=== PATIENT | male | born 1950 | race Two or more races ===

== ENCOUNTER → 2025-03-10 | Outpatient (CLI) | payer MEDICARE, MEDICAID, SELFPAY ==
--- NOTE | 2025-03-10 10:31 | XR_ITS ---
Examination: Right knee 2 views TECHNIQUE: AP lateral right knee 2 views Date and time: March 10, 2025 1053 hours INDICATIONS: Right knee pain one year. FINDINGS: Advanced narrowing lateral and patellofemoral joints Prominent osteopenia No fracture Small to moderate knee effusion IMPRESSION: Advanced narrowing lateral and patellofemoral joints
== END | disposition home or self-care (01) ==
LOC: SDIM 10:24
PROVIDERS: PCP Family Medicine; Referring Provider Orthopaedic Surgery; Visit Provider Orthopaedic Surgery
DX: M25.861 Other specified joint disorders, right knee (principal)
CPT/HCPCS: 73562

== ENCOUNTER 2025-03-28 14:15 | Observation (INO) | payer MEDICARE, MEDICAID, SELFPAY ==
[2025-03-27 13:37] VITALS: BMI 43.9
[2025-03-27 14:53] LABS: Basophils # (Auto) 0.0 Thou/mm3 (0.0-0.2); Basophils % (Auto) 0 % (0-2.5); Eosinophils # (Auto) 0.1 Thou/mm3 (0.0-0.5); Eosinophils % (Auto) 2 % (0-10); Hematocrit 42.2 % (41.0-53.0); Hemoglobin 13.7 g/dL (13.5-16.0); Immature Granulocytes Auto 0.12 Thou/mm3 (0.00-0.00); Lymphocytes # (Auto) 1.4 Thou/mm3 (1.0-4.8); Lymphocytes % (Auto) 26 % (10-50); Mean Corpuscular HGB Conc 32.5 g/dl (31.0-37.0); Mean Corpuscular Hemoglobin 30.4 pg (25.0-35.0); Mean Corpuscular Volume 94 fL (80-100); Monocytes # (Auto) 1.1 Thou/mm3 (0.0-0.8); Monocytes % (Auto) 20 % (0-12); Neutrophils # (Auto) 2.6 Thou/mm3 (1.8-7.7); Neutrophils % (Auto) 49 % (37-80); Nucleated Red Blood Cell # 0.00 Thou/mm3 (0.00-0.00); Nucleated Red Blood Cell % 0 /100 WBC (0); Platelet Count 119 Thou/mm3 (140-440); RDW Standard Deviation 44.2 fL (35.1-43.9); Red Blood Count 4.51 Miln/mm3 (4.50-5.90); White Blood Count 5.3 Thou/mm3 (3.8-10.6)
[2025-03-27 15:07] LABS: INR 1.3 (0.9-1.3); Partial Thromboplastin Time 25.6 Seconds (22.0-36.0); Prothrombin Time 13.5 Seconds (9.0-12.2)
[2025-03-27 15:10] LABS: Alanine Aminotransferase 12 U/L (10-49); Albumin, Serum 4.6 gm/dL (3.4-4.8); Albumin/Globulin Ratio 1.5 (1.2-2.2); Alkaline Phosphatase 64 U/L (46-116); Anion Gap 8 (7-16); Aspartate Amino Transferase 23 U/L (0-34); BUN/Creatinine Ratio 12 Ratio (12-20); Bilirubin,Total 1.2 mg/dL (0.3-1.2); Blood Urea Nitrogen 13 mg/dL (9-23); Calcium 10.0 mg/dL (8.3-10.6); Calcium (Corrected) 10.0 mg/dL (8.5-10.1); Carbon Dioxide 25.9 mMol/L (20.0-31.0); Chloride 105 mMol/L (98-107); Creatinine (Component) 1.1 mg/dL (0.6-1.3); Estimated Creatinine Clearance 87.8 mL/min (>60); Globulin 3.0 gm/dL (2.3-3.5); Glucose 93 mg/dL (74-106); Osmolality,Calculated 277 (275-295); Potassium 4.5 mMol/L (3.4-5.1); Sodium 139 mMol/L (136-145); Total Protein 7.6 gm/dL (5.7-8.2); eGFR > 60 See Note
[2025-03-28] VITALS (18 sets, daily range): BP systolic 90–146; BP diastolic 58–85; PULSE 62–96; RESP 15–96; TEMP 36.1–36.9; O2SAT 93–100; BMI 32.1
[2025-03-28] MEDS: RINGERS LACTATED 1000 ML 1,000 ML 20 ML IV (07:30)
--- NOTE | 2025-03-28 11:02 | XR_ITS ---
Examination: Knee, right , 3 views Technique: Knee AP, lateral, oblique 3 views Date and time of exam: March 28, 2025 1148 hours INDICATIONS: Postop knee replacement. FINDINGS: Total right knee arthroplasty. Satisfactory alignment. Prominent osteopenia. No fracture. IMPRESSION: Total right knee arthroplasty with satisfactory alignment
--- NOTE | 2025-03-28 11:03 | ESOP_ITS ---
Date of Procedure 03/28/25 Pre Op Diagnosis Severe DJD right knee joint Post Op Diagnosis Same Procedure Right total knee replacement Kelley persona implant. Femur size 10 standard Tibial baseplate size G Polyethylene size 10 CR Polyethylene size 29 mm Findings Patient is significant DJD of the right knee joint. There was [id number] appearance as well. Most of the areas of the condyles were denuded of cartilage. Patient has genu valgus deformity as well. Osteophytes were present Procedure Description The patient was given a [spinal] anesthesia. Once satisfactory anesthesia was achieved a tourniquet was placed on right upper thigh. The right knee block was given 2. Intravenous antibiotics was given at the time of anesthesia. The patient was thoroughly prepped and draped. After using Esmarch the tourniquet pressure was raised to 350 mmHg. A skin incision was made 2 inches proximal to the upper pole of patella going as far down as up to the medial aspect of the tibial tuberosity. The skin was raised as a flap on the site. The bleeding vessels were electrocoagulated as and when encountered. The quadriceps tendon, medial border of the patella and the patellar tendon along the medial aspect of the tibial tuberosity was incised and reflected. The patellar tendon was reflected as much as needed to mitch the patella. The soft tissue from the upper medial border of the tibia was reflected to correct her genu varum deformity. The knee joint was flexed. The anterior cruciate ligament, medial and lateral m eniscus were excised. Next para drill hole was made to the inferior surface of the femur. Following that a swab was placed. A 6?? of abduction was already put into it. Following that a cutting block for the inferior cut of the femur was placed and nicely secured with the pins. The swat was removed. The inferior cut of the femur was made and after that the cutting block was removed. Following that a sizer was placed. A decision was made to use size [10] femur implant. 2 drill holes each in 3?? of external rotation were made. The sizer was removed. Size [4] cutting block was placed. Following that anterior, posterior, anterior chamfer and posterior chamfer cuts were made. The cutting block was removed. The knee joint was extended and a 10 mm trial plastic was removed and the i ntended level of the tibial cut was marked. The knee joint was flexed. With the help of double-pronged the tibia was displaced anteriorly. An extramedullary jig for the cutting block placement of the tibia was placed. The mechanical axis of the zig was parallel to the mechanical axis of the tibia. Following that the tibial cutting block was placed at the desired level and was secured nicely with the help of pins. Following that the tibial cut was made. In this case was posterior cruciate ligament was saved. The cutting block was removed. The spacer was placed and a decision was made to use size [10] polyethylene. The sizing of the tibial baseplate was done and the decision was made to use size [G] tibial baseplate. Following that size [10] trial femur implant was placed in lateralized position and size [G] tibial tibial baseplate along with size [10] CR plastic was placed in knee joint was flexed and extended quite a few times and tibial baseplate was allowed to sit wherever it wanted to. The markings were made for the tibial baseplate. 2 drill holes were made for the inferior surface of the femur trial implant. The trial implant was removed and tibial baseplate was placed again with the help of pins. The collar was placed and superior hole was drilled. Following that a fin cut was made. The patella was reamed with [29] mm diameter reamer. [12] mm thickness was left. A collar was placed and 3 drill holes were made. All the trial implant was placed and patellar tracking was checked and found to be good. Lateral release was done at this point. The wound was irrigated with antibiotic solution every 4-5 minutes. Now the power lavage antibiotic solution was used. The knee joint was flexed. The bone were made dry. The cement was mixed. With the help of cement the tibial baseplate was mounted. The excess cement was removed. The femur implant was placed and trial plastic was placed and knee joint was extended. Patella was also mounted with the help of cementing. Excess cement was removed. Osteophytes from the patella was removed at this time. Once the cement was set the tourniquet pressure was released. The bleeding vessels were electrocoagulated. The trial plastic was removed and 10 mm ultra high molecular weight polyethylene was placed. Closure The quadriceps tendon, medial border of the patella and patellar tendon was closed with the help of 1 strata fix in continuous fashion. The fat layer was closed with 2 strata fix in continuous fashion. The skin was closed with Monocryl subcuticular stitch. To cleaning the wound with hydrogen peroxide solution Prineo tape was applied. A sterile dressing was applied. The wound was cleaned with hydrogen proximal solution and a sterile dressing was applied. Patient tolerated procedure very well. Estimated blood loss [50] mL. Prognosis in this case is good. This was taken to the recovery room in good condition. Anesthesia spinal and other Pathology / specimen None Estimated Blood Loss 50 Surgeon Froy Mosley MD Surgical Staff Operation Date: 03/28/25 08:30 Case Staff Anesthesiologist: Efren Dubois RNmanager terminal: Keisha Feldman
--- NOTE | 2025-03-28 11:14 | SUR.PHASEI ---
1102 patient is awake, alert, breathing unlabored, s/p Right TKA by Dr. Mosley, dressing to right knee dry with no bleeding, right pedal pulse strong, toes with good circulation, Report received from Katja WHEELER,and Dr. Dubois.
--- NOTE | 2025-03-28 11:39 | SUR.PHASEII ---
1139: Pt. AAOx4, vitals stable, breathing unlabored, no complaint of pain or nausea, dressing to right knee CDI, no active bleed noted, bilateral dorsalis pedis pulses strong and regular, cap refill to bilateral feet less than 3 seconds, report received from Mia WHEELER.
--- NOTE | 2025-03-28 11:40 | SUR.PHASEI ---
1139 patient is awake, alert, breathing unlabored, dressing to right knee dry with no bleeding, report given to Anayeli WHEELER, waiting for post op xray and room assignment
--- NOTE | 2025-03-28 14:00 | SUR.PHASEII ---
1400: Pt. AAOx4, vitals stable, breathing unlabored, no complaint of pain or nausea, dressing to right knee CDI, no active bleed noted, bilateral dorsalis pedis pulses strong and regular, cap refill to bilateral feet less than 3 seconds, pt. able to move bilateral legs, pt. tolerated lunch tray well, gave report to floor RN prior to transfer to room. Pt. transferred with all personal belongings, family made aware of transfer to room.
[2025-03-28] MEDS: ceFAZolin/D5W 1 GM IVPB 1 GM/50 ML BAG IV ×2 (15:45→23:05)
--- NOTE | 2025-03-28 16:59 | PC.NURSE ---
coordinated care with dr Sri. Peg sage
[2025-03-28] MEDS: MORPHINE SULF INJ 10 MG/ML VIAL 4 MG IVP (19:20)
[2025-03-29] VITALS (8 sets, daily range): BP systolic 127–152; BP diastolic 78–94; PULSE 75–93; RESP 18–94; TEMP 36.2–36.9; O2SAT 92–96; BMI 11.0
[2025-03-29] MEDS: MORPHINE SULF INJ 10 MG/ML VIAL 4 MG IVP ×4 (00:04→19:24)
[2025-03-29 05:46] LABS: Basophils # (Auto) 0.0 Thou/mm3 (0.0-0.2); Basophils % (Auto) 0 % (0-2.5); Eosinophils # (Auto) 0.0 Thou/mm3 (0.0-0.5); Eosinophils % (Auto) 0 % (0-10); Hematocrit 38.9 % (41.0-53.0); Hemoglobin 13.0 g/dL (13.5-16.0); Immature Granulocytes Auto 0.96 Thou/mm3 (0.00-0.00); Lymphocytes # (Auto) 1.2 Thou/mm3 (1.0-4.8); Lymphocytes % (Auto) 5 % (10-50); Mean Corpuscular HGB Conc 33.4 g/dl (31.0-37.0); Mean Corpuscular Hemoglobin 31.0 pg (25.0-35.0); Mean Corpuscular Volume 93 fL (80-100); Monocytes # (Auto) 9.3 Thou/mm3 (0.0-0.8); Monocytes % (Auto) 36 % (0-12); Neutrophils # (Auto) 14.1 Thou/mm3 (1.8-7.7); Neutrophils % (Auto) 55 % (37-80); Nucleated Red Blood Cell # 0.00 Thou/mm3 (0.00-0.00); Nucleated Red Blood Cell % 0 /100 WBC (0); Platelet Count 129 Thou/mm3 (140-440); RDW Standard Deviation 44.3 fL (35.1-43.9); Red Blood Count 4.19 Miln/mm3 (4.50-5.90); White Blood Count 25.6 Thou/mm3 (3.8-10.6)
--- NOTE | 2025-03-29 10:03 | PC.PT ---
PT eval performed, pt amb in ring w/ FWW ~100ft. Patient need FWW for release to home.
[2025-03-29 11:36] LABS: Band Neutrophils (Manual) 5 % (0-6); Lymphocytes (Manual) 13 % (20-44); Monocytes (Manual) 15 % (2-9); Neutrophils (Manual) 67 % (50-70)
[2025-03-30] VITALS: BP 140/86; PULSE 70; RESP 18; TEMP 36.8; O2SAT 92
[2025-03-30 04:00] VITALS: PULSE 80; RESP 18; TEMP 37.2; O2SAT 93
[2025-03-30] MEDS: MORPHINE SULF INJ 10 MG/ML VIAL 4 MG IVP ×2 (05:42→10:50)
[2025-03-30 06:51] VITALS: PULSE 89; RESP 20; RESP 93
[2025-03-30 07:00] VITALS: BP 135/92; PULSE 90; RESP 17; TEMP 36.4; O2SAT 94
[2025-03-30 12:00] VITALS: BP 133/93; PULSE 94; RESP 18; TEMP 36.3; O2SAT 94
--- NOTE | 2025-03-30 14:32 | PC.PT ---
Recommend raised toilet seat in addition to FWW for home upon discharge.
--- NOTE | 2025-04-04 16:11 | ESPR_ITS ---
Documentation for date of: 04/04/25 POST ANESTHESIA NOTE: Patient had spinal anesthesia and R femoral block and MAC for R TKA on 03/28/25. I just called his number for follow up via [employer] team lead but no answer. Efren Dubois MD Anesthesia Progress Note Progress Note Most recent Vital Signs: Last Vital Signs Temp 97.4 F 03/30/25 12:00 Pulse 94 03/30/25 12:00 Resp 18 03/30/25 12:00 BP 133/93 H 03/30/25 12:00 Pulse Ox 94 L 03/30/25 12:00 O2 Del Method Room Air 03/30/25 12:00 O2 Flow Rate 5 03/28/25 11:17
== END 2025-03-30 14:46 | disposition home or self-care (01) ==
LOC: S3SX 03-30 12:26
PROVIDERS: Anesthesiology; Admitting Provider Orthopaedic Surgery; PCP Family Medicine; Referring Provider Orthopaedic Surgery; Visit Provider Orthopaedic Surgery
PROC: (CPT 27447; principal; 2025-03-28 08:30)
DX: M17.11 Unilateral primary osteoarthritis, right knee (principal); M21.061 Valgus deformity, not elsewhere classified, right knee; M25.761 Osteophyte, right knee
CPT/HCPCS: 27447; 36415; 73562; 80053; 85025; 85610; 85730; 86850; 86900; 86901; 86923; 87081; 96374; 97161; A4217; A4649; C1713; C1776; G0378; J0689; J0690; J1100; J2250; J2270; J2371; J2704; J2795; J3010; J3490; J7120; J1596